=== PATIENT | female | born 1940 | race Caucasian/White ===

== ENCOUNTER → 2017-04-08 | Outpatient (CLI) | payer OTHER | LOC: BHFA 10:45 | PROVIDERS: ATTEND Internal Medicine Cardiovascular Disease | DX: I10 Essential (primary) hypertension (principal) ==

== ENCOUNTER 2018-04-15 10:20 | Inpatient (IN) | payer OTHER, MEDICARE ==
[2018-04-15 10:43] LABS: PLATELET COUNT 207 10^3/uL (150-400)
[2018-04-15] MEDS ORDERED: AZITHROMYCIN IV 500 MG in NS 250 ML IV ONE (11:07)
--- NOTE | 2018-04-15 11:11 | EDPHY ---
H & P Stated Complaint: Cough, SOB Time Seen by Provider: 04/15/18 10:38 HPI/ROS: CHIEF COMPLAINT: Shortness of breath HISTORY OF PRESENT ILLNESS: 78-year-old female presents with shortness of breath. Onset fever and chills 5 days ago. Associated with a mild cough. Shortness of breath started yesterday and has been gradually increasing. Now short of breath at rest. Has a mild sore throat, no runny nose. No chest pain or dizziness. History of pneumonia many years ago. Recent prolonged travel. No prior history of DVT/pulmonary embolism. REVIEW OF SYSTEMS: complete 10 point ROS negative except at noted in the HPI - Personal History Current Tetanus Diphtheria and Acellular Pertussis (TDAP): Yes - Medical/Surgical History Hx Asthma: No Hx Chronic Respiratory Disease: No Hx Diabetes: No Hx Cardiac Disease: No Hx Renal Disease: No Hx Cirrhosis: No Hx Alcoholism: No Hx HIV/AIDS: No Hx Splenectomy or Spleen Trauma: No Other PMH: HTN, HEARING LOSS, ANXIETY - Social History Smoking Status: Never smoked - Physical Exam Exam: General Appearance: Alert, pleasant, hard of hearing Eyes: Pupils equal and round, no conjunctival pallor or injection ENT, Mouth: Mucous membranes moist Neck: Normal inspection Respiratory: Lungs are clear to auscultation Cardiovascular: Regular rate and rhythm Gastrointestinal: Abdomen is soft and nontender Neurological: A&O, nonfocal exam Skin: Warm and dry, no rash Extremities: Nontender, no pedal edema Psychiatric: Mood and affect normal Constitutional: Initial Vital Signs Temperature (C) 36.4 C 04/15/18 10:29 Heart Rate 105 H 04/15/18 10:29 Respiratory Rate 20 04/15/18 10:29 Blood Pressure 142/78 H 04/15/18 10:29 O2 Sat (%) 80 L 04/15/18 10:29 O2 Delivery Mode Nasal Cannula O2 (L/minute) 4 Allergies/Adverse Reactions: wheat [Wheat] Allergy (Mild, Verified 10/18/12 18:39) TIRED DAIRY Allergy (Mild, Uncoded 10/18/12 18:39) INCREASE MUCUS Home Medications: Medication Instructions Recorded clonIDINE [Catapres (*)] 0.1 mg PO BID 04/15/18 Medical Decision Making - Diagnostics EKG Interpretation: EKG interpreted by me reveals sinus tachycardia, rate 108, LVH. Interpretation : Abnormal EKG Imaging Results: Chest X-Ray 04/15/18 10:36 Impression: 1. Asymmetric right hilar prominence with areas of right perihilar and lateral right upper lobe consolidation and a small right pleural effusion, indeterminate for inflammatory, infectious, or neoplastic changes. 2. Mild cardiac silhouette enlargement. Dr. Roblero has also requested CT imaging of the chest, which will be subsequently performed and separately reported. CT angiogram read by the radiologist reveals extensive bilateral pulmonary emboli. Imaging: Discussed imaging studies w/ tube and rod straightener Radiologist, I viewed and interpreted images myself ED Course/Re-evaluation: This patient presents with shortness of breath with an oxygen saturation of 80% on room air. Chest x-ray reveals a possible right sided infiltrate. However, this is a very small area of infiltrate; concern for PE. Ddimer ordered. Blood cultures were drawn and Rocephin and Zithromax given for possible pneumonia. 1235: ddimer 10.35, CTA chest ordered. 1330: CTA reveals submassive bilateral PE. Consideration for thrombolysis per radiology. Heparin per weight based protocol initiated. Will admit to ICU, Dr. Martinez. This patient was seen by the hospitalist service and decision made to not proceed with thrombolysis. IV heparin started per protocol. The patient was transferred to the ICU in stable condition. I spent a total of 35 minutes of critical care time in obtaining history, performing a physical exam, bedside monitoring of interventions, collecting and interpreting tests and discussion with consultants but not including time spent performing procedures. Organ at risk: lungs Differential Diagnosis: Differential diagnosis includes though it is not limited to pneumonia, pneumothorax, pulmonary embolism, aortic dissection, pericarditis, acute coronary syndrome. - Data Points Laboratory Results: Laboratory Results 04/15/18 10:25 04/15/18 10:35 Microbiology Results: MICROBIOLOGY 04/15/18 11:20 Blood Blood Culture - Preliminary 04/15/18 11:25 Blood Blood Culture - Preliminary Medications Given: Apixaban (Eliquis) 10 mg PO BID MARY Stop: 10/14/18 20:59 Last Admin: 04/17/18 20:23 Dose: 10 mg Clonidine (Catapres) 0.1 mg PO BID MARY Stop: 10/12/18 20:59 Last Admin: 04/17/18 20:23 Dose: 0.1 mg Hydralazine HCl (Apresoline) 10 mg IVP Q6HRS PRN PRN Reason: systolic >165, diastolic >100 Stop: 10/12/18 17:47 Last Admin: 04/17/18 04:19 Dose: 10 mg Heparin Sodium (Porcine) (Heparin 50 Units/Ml (Premix)) 500 mls @ 0 mls/hr IV CONT MARY; Per Protocol PRN Reason: Protocol Stop: 10/12/18 16:29 Last Admin: 04/17/18 08:11 Dose: 500 mls Olmesartan (Benicar) 20 mg PO DAILY MARY Stop: 10/14/18 12:59 Last Admin: 04/17/18 14:09 Dose: 20 mg Discontinued Medications Heparin Sodium (Porcine) (Heparin Injection) 0 unit IVP EDNOW ONE Stop: 04/15/18 14:13 Last Admin: 04/15/18 14:42 Dose: 7,256 units Azithromycin 500 mg/ Sodium (Chloride) 255 mls @ 255 mls/hr IV EDNOW ONE PRN Reason: Protocol Stop: 04/15/18 12:06 Last Admin: 04/15/18 12:01 Dose: 255 mls Ceftriaxone Sodium/Dextrose (Rocephin 1 Gm (Premix)) 50 mls @ 100 mls/hr IV EDNOW ONE PRN Reason: Protocol Stop: 04/15/18 11:36 Last Admin: 04/15/18 11:31 Dose: 50 mls Heparin Sodium (Porcine) (Heparin 50 Units/Ml (Premix)) 500 mls @ 0 mls/hr IV EDNOW ONE; Per Protocol PRN Reason: Protocol Stop: 04/15/18 14:13 Last Admin: 04/15/18 14:44 Dose: 500 mls Lorazepam (Ativan) 0.5 mg PO ONCE ONE Stop: 04/15/18 14:28 Last Admin: 04/15/18 14:43 Dose: 0.5 mg Departure - Departure Disposition: [facility] Acute Clinical Impression: Pulmonary embolism Qualifiers: Pulmonary embolism type: other Chronicity: acute Acute cor pulmonale presence: with acute cor pulmonale Qualified Code(s): I26.09 - Other pulmonary embolism with acute cor pulmonale Condition: Serious
[2018-04-15] MEDS ORDERED: IOPAMIDOL (ISOVUE 370) 100 ML BTL IV ONE (12:33)
--- NOTE | 2018-04-15 13:11 | PDGENHP ---
History and Physical History and Physical: CC: Shortness of breath HISTORY: This patient comes into the ER today complaining of several days of increasing shortness of breath with slight cough. She mentions having some fever and chills symptoms but did not measure temperature at her temperatures are normal so far here. There has been stuffiness in her nose, but no other real definite infectious type symptoms. She denies any kind of chest pain pleuritic or otherwise. And she also denies any pain or swelling in her legs. She has nothing that sounds like angina and no orthopnea. She does not have a history of asthma or lung disease or heart disease or clots. She has driven to [place] and back twice in the month of March. She is not a smoker. She has no history of cancer and does not describe to me any symptoms that sound like she would have a cancer. ROS: A comprehensive 10 system review revealed no other significant findings PAST MEDICAL HISTORY: Essential hypertension * Note that her blood pressure is chronically been quite difficult to control, she was fairly recently started on twice daily clonidine has been on a large number of medicines prior to that that were either not tolerated or ineffective Hard of hearing Anxiety disorder FAMILY MEDICAL HISTORY: Hypertension Anxiety SOCIAL HISTORY: Lives alone Reasonably physically active No alcohol tobacco or drugs MEDICATIONS: Clonidine 0.1 twice daily Denies medicine allergies PHYSICAL EXAMINATION: Vital Signs: She is initially moderately tachycardic with a regular rhythm in the ER, her lowest oxygen saturation in the ER on room air is 80%, blood pressures mildly to moderately elevated, no fever Regional Facilities Manager: Examination: General: alert, oriented, good mentation, relaxed, talkative; wearing nasal cannula oxygen at 3 L Skin: warm, dry, good color, no rash; fingers and toes are all warm with good color and good capillary refill she has a very good pulse wave on pulse oximeter from her finger HEENT: normal Neck: no mass or jvd Resps: relaxed Lungs: clear breath sounds Heart: regular, no murmur Abdomen: soft, nondistended, nontender, +BS, no mass Upper Extremities: normal Lower Extremities: no edema, warm No Bleeding or bruising Neurologic: normal speech/language, normal product design manager, no focal weakness IV site: looks normal LABORATORY DATA: D-dimer elevated at 10 White blood cell count is normal as are red cell and platelet counts Sodium low at 125 Pro BNP elevated at 6000 Glucose at 176 Lactic acid normal RADIOLOGY STUDIES: I reviewed to images from a chest x-ray in the ER today, there is a very small pleural effusion on the right, there is some densities in the right lung that could be infiltrate mass or otherwise; there is no pulmonary edema or evidence of CHF otherwise; there are no old chest x-rays for comparison I also ordered and reviewed images from a CT angio of her chest today. There is complete obstruction of the left main pulmonary artery distally with thrombus that extends out distally beyond that. There is also significant burden of clot in vessels on the left side of the left main is open. No clot in the main pulmonary artery was saddle. There is evidence of some possible right heart strain and there is evidence suggesting pulmonary hypertension. There is some areas of consolidation in the right lung that are suggestive of infarct versus other cause. No masses are seen, there is a small effusion 12 LEAD EKG: I reviewed 12 lead tracing from the ER which shows a sinus rhythm, tachycardic, with left anterior fascicular block, possible LVH based on precordial leads, no ischemic ST or T-wave changes and no Q-waves; the conduction changes are new since 2012 and the chest lead voltages are higher than they were in 2012 though the limb lead voltages today are some small ASSESSMENT: * acute submassive pulmonary embolism with stable blood pressure and pulse, breathing comfortably on 3 L nasal cannula oxygen * Appears possibly unprovoked though she did drive to [place] her twice in March which could have triggered this * No prior history, no other known risk factors and no family history * acute hypoxemic respiratory failure with dyspnea hypoxemia labored breathing and tachycardia * Appears all due to her PE and its consequences; I do not think she has pneumonia which is the ER diagnosis initially * hyponatremia * Cause of this is uncertain but she likely has some SIADH * Will check some urine studies * hyperglycemia, question if she is developing diabetes which would be new for her * elevated BNP; due to PE, does not appear to have any left-sided heart failure PLANS: * Inpatient admission * Admission to Step-Down Unit * IV heparin drip * I have consulted Dr. Angel Isaac to see her and have discussed her case in detail with him * Ultrasound of the legs 5 to assess for clot * Check hemoglobin A1c * Oral fluid restriction, follow sodiums closely * Check urine sodium This patient has fairly high risk for significant complications of her PE has a high Pesi score I have reviewed the patient's case in detail with Dr. Sha Connelly and Angel Isaac I have reviewed the patient's past medical records as part of this assessment, including previous hospital admission records including lab data EKGs vital signs physician notes etc
[2018-04-15] MEDS ORDERED: HEPARIN 10,000 UNIT/10 ML MDV (1,000 UNIT/ML) IVP ONE (14:12)
[2018-04-15] MEDS ORDERED: HEPARIN/DEXTROSE 500 ML IV ONE (14:12)
[2018-04-15] MEDS ORDERED: LORazepam 0.5 MG TAB PO ONE (14:27)
--- NOTE | 2018-04-15 14:55 | CPEKG ---
Test Reason : OPEN Blood Pressure : / mmHG Vent. Rate : 108 BPM Atrial Rate : 108 BPM P-R Int : 196 ms QRS Dur : 097 ms QT Int : 357 ms P-R-T Axes : 064 -58 029 degrees QTc Int : 479 ms Sinus tachycardia Atrial premature complex LAE, consider biatrial enlargement Left anterior fascicular block Left ventricular hypertrophy Anterior Q waves, possibly due to LVH Confirmed by Vi Roblero ([id number]) on 04/15/2018 2:54:56 PM Referred By: Confirmed By:iV Roblero
--- NOTE | 2018-04-15 15:21 | PDMN ---
Medical Necessity Medical necessity: MCG M290 PE: 78 y/o w/ acute hypoxemic respiratory failure ( 80% on RA) with dyspnea, hypoxemia, labored breathing and tachycardia, hyponatremia (125), hyperglycemia 176 (new - no hx diabetes), elevated BNP 6000 and Ddimer 10.95, CTA shows acute PE w/ large clot burden causing right heart strain. Inpt admit for further treatment and monitoring.
--- NOTE | 2018-04-15 15:45 | ASMTCMCOM ---
CM Note CM Note Notes: Chart reviewed for discharge planning purposes. Patient is a 78 year old female admitted via ED after having several days of increasing SOB. Per CT is has diagnosis of bilateral PE's. She normally lives alone and has 2 daughters listed in her demographics. Needs TBD. CM to follow for needs. Plan: TBD Date Signed: 04/15/2018 03:44 PM Electronically Signed By:Paula Luis RN
[2018-04-15] MEDS ORDERED: HEPARIN 10,000 UNIT/10 ML MDV (1,000 UNIT/ML) IVP PRN (16:25)
[2018-04-15 17:34] LABS: PLATELET COUNT 200 10^3/uL (150-400)
--- NOTE | 2018-04-15 18:22 | GCON ---
PULMONARY CONSULTATION HPI: This patient was brought to the emergency department today complaining of several days of short ness of breath with some fever and chills, as well as nasal stuffiness. She also reported generalize d malaise over the last week or so. She has not had any recent trauma. There have been no recent hughes rgeries. She has no history of venous thromboembolic disease in herself or her family. No known mal ignancies and is a nonsmoker. In the emergency department, her workup included a CT angiogram that r evealed a large clot burden with pulmonary embolism. There was some consideration for thrombolytic t herapy, but this was not done. She was treated with a heparin drip and transferred to the intensive care unit for further evaluation. REVIEW OF SYSTEMS: Otherwise negative. PAST MEDICAL HISTORY: Includes poorly-controlled hypertension, hard of hearing, and an anxiety disor noman. PAST SURGICAL HISTORY: Includes only cochlear implants. FAMILY HISTORY: Includes hypertension, anxiety. SOCIAL HISTORY: She is a nonsmoker. No alcohol or IV drug use in the past. CURRENT MEDICATIONS: Include clonidine, as she has been noncompliant with as an outpatient, and a he grzegorz drip, as well as p.r.n. hydralazine. PHYSICAL EXAM: VITAL SIGNS: She was afebrile. Her blood pressure was 180/105, heart rate 96, respi rations 27, oxygen saturation 92% on 3 L nasal cannula. GENERAL: She was awake and alert, in no aicha arent distress, and able to speak in full sentences without using accessory muscles for breathing. H EENT: Pupils are equally round and reactive to light, nonicteric, and noninjected. Mucous membranes are moist without erythema or exudate. NECK: Supple without adenopathy, and no obvious jugular vei n distention. LUNGS: Breath sounds were distant bilaterally but were clear to auscultation. HEART: Sounds were also distant but I could not appreciate any murmurs or rubs. ABDOMEN: Soft, nontender , nondistended without hepatosplenomegaly. EXTREMITIES: Showed no clubbing, cyanosis, or edema. NE UROLOGIC: Nonfocal, including cranial nerves and deep tendon reflexes. SKIN: Warm and dry, without evidence of rash, and she was morbidly obese. LABORATORY DATA: Includes a white count of 8.9, hematocrit 44, platelets of 207. D-dimer of 10.9. Sodium was 125, potassium 4.3, chloride 86, bicarb 26, BUN 16, creatinine 0.9, glucose 176. BNP 6180 . IMAGING: CT angiogram shows acute pulmonary embolism with evidence of right heart strain, right uppe r lobe wedge-shaped consolidative opacities consistent with infarcts, and cholelithiasis. ASSESSMENT AND PLAN: Acute pulmonary embolism: As far as I can tell, this is unprovoked at this mary e. I do not see anything highly suspicious on her CT scan suggestive of malignancy nor does she have any symptoms that would suggest this, and she is a nonsmoker. She reports being quite active. She goes to [employer] twice a week, yoga 3 times a week, and walks frequently. Her neighbor was with us at the time of the evaluation and substantiated that story. In any case, I agree with the heparin drip , and she will eventually need to transition to an oral anticoagulant. If she remains stable overnig ht, I would also change her to a low-molecular weight heparin for the acute period. I think that thr ombolytic therapy was not clearly indicated in the absence of hypotension while RV strain can be an i ndication for thrombolytic therapy, her poorly-controlled hypertension may this a difficult choice, a nd could have ended in substantial bleeding. In any case, she will eventually need a repeat CT scan to make sure that the consolidative processes noted do, in fact, resolve, and I think that a hypercoa gulable workup at this time would probably be useful for what we can measure such as factor V Leiden, lupus anticoagulant, and prothrombin [id number]. In any case, she appears to be hemodynamically stable at this time and we will continue to follow. /[id number]/MODL
[2018-04-15] MEDS: hydrALAZINE 20 MG/ML VIAL IVP PRN (18:35)
[2018-04-16] MEDS: HEPARIN/DEXTROSE 500 ML IV SCH (09:56)
--- NOTE | 2018-04-16 11:04 | PDINTPN ---
Linker Up Progress Note Assessment/Plan: 78 F admitted 04/15 with complaints of generalized fatigue and cough, found to have large PE. No obvious risk factors. Lytics were considered 2/2 right heart strain noted on CTA but she had poorly controlled HTN. Treated with UFH. * PE- unprovoked as far as I can tell. Popliteal DVT seen on US was probably source, but no IVC filter indicated at this time. She can probably transition to LMWH and oral anticoagulants. I would favor treatment for 6 months (3-6 mo per ACCP guidelines). Some hypercoag parameters sent and pending. She has never had a colonoscopy and does not have a primary care physician. I urged her to identify one, gave her a few names and asked CM to assist. OK for PCU Subjective: feels better today Objective: Vital Signs Temp Pulse Resp BP Pulse Ox 36.6 C 83 30 H 145/92 H 95 04/16/18 08:00 04/16/18 08:00 04/16/18 08:00 04/16/18 08:00 04/16/18 08:00 Laboratory Results 04/15/18 17:17 04/16/18 04:00 04/15/18 04/16/18 04/17/18 05:59 05:59 05:59 Intake Total 1417 Output Total 650 Balance 767 Physical Exam - Physical Exam General Appearance: WD/WN, alert, no apparent distress, obese EENT: PERRL/EOMI Neck: supple Respiratory: lungs clear, normal breath sounds, No respiratory distress, No accessory muscle use Cardiac/Chest: regular rate, rhythm, No edema Abdomen: non-tender, soft, No distended Skin: normal color, warm/dry, No cyanosis Lymphatic: no adenopathy Extremities: No pedal edema Neuro/Psych: alert, normal mood/affect, oriented x 3 ICD10 Worksheet Patient Problems: Problems Problem Status Onset Pulmonary embolism Acute Hypertension, uncontrolled Acute
--- NOTE | 2018-04-16 11:48 | ASMTCMCOM ---
CM Note CM Note Notes: Per MD request met with patient to provide her with options for [place] female medical practitioners for her to choose a PCP. Patient was agreeable to discussing options. let her with name and numbers for female providers. CM to follow for needs. Plan: TBD Date Signed: 04/16/2018 11:47 AM Electronically Signed By:Paula Luis RN
--- NOTE | 2018-04-16 12:19 | HOSPPROG ---
Hospitalist Progress Note Assessment/Plan: DIAGNOSES: * acute submassive pulmonary embolism with stable blood pressure and pulse, breathing comfortably on 3 L nasal cannula oxygen; DVT present * Appears possibly unprovoked though she did drive to [place] her twice in March which could have triggered this * No prior history, no other known risk factors and no family history * acute hypoxemic respiratory failure with dyspnea hypoxemia labored breathing and tachycardia * Appears all due to her PE and its consequences; I do not think she has pneumonia which was the ER diagnosis initially * severe HTN, uncontrolled, w hx chronic poorly controlled HTN * hyponatremia * Cause of this is uncertain but she likely has some SIADH * Will check some urine studies * hyperglycemia, question if she is developing diabetes which would be new for her * elevated BNP; due to PE, does not appear to have any left-sided heart failure or edema PLANS: * continue iv heparin, continue discussion for eventual change to oral * transfer pcu * continue glass technician/installer * continue to follow HTN closely, titrate treatment as needed * will add some sodium supplement, for now continue fluid restriction, continue to follow serum sodium closely * await Hg A1c; sugars do not need specific tx at present I reviewed in detail w Dr Isaac today Fairly high risk of complications, concerned for her HTN on anticoag SUBJECTIVE: feels overall comfortable, still w dyspnea no pain no new sxs no bleeding OBJECTIVE: vitals: BPs better, remains tachypneic, pulse good, breathing easily on 2L NC heart monitor: all sinus Exam: alert, more relaxed tachypneic and mild labor but speaks easily lungs clear heart regular abd nl no edema legs no bleed or bruise Lab data: Hep level 1.0 Na up to 127 gluc 120 Objective: Vital Signs Temp Pulse Resp BP Pulse Ox 36.8 C 85 22 H 144/93 H 97 04/16/18 11:58 04/16/18 11:58 04/16/18 11:58 04/16/18 11:58 04/16/18 11:58 Laboratory Results 04/15/18 17:17 04/16/18 04:00 04/15/18 04/16/18 04/17/18 06:59 06:59 06:59 Intake Total 1417 Output Total 650 Balance 767 - Time Spent With Patient Time Spent with Patient: greater than 35 minutes Time Spent with Patient: Greater than 35 minutes spent on this patients care, greater than 50% of time spent counseling, educating, and coordinating care regarding the above mentioned plan. ICD10 Worksheet Patient Problems: Problems Problem Status Onset Pulmonary embolism Acute Hypertension, uncontrolled Acute
[2018-04-16] MEDS: hydrALAZINE 20 MG/ML VIAL IVP PRN (16:39)
[2018-04-17] MEDS: hydrALAZINE 20 MG/ML VIAL IVP PRN (04:19)
[2018-04-17] MEDS: HEPARIN/DEXTROSE 500 ML IV SCH (08:11)
[2018-04-17] MEDS: OLMESARTAN MEDOXOMIL 20 MG TAB PO SCH (14:09)
--- NOTE | 2018-04-17 16:40 | HOSPPROG ---
Hospitalist Progress Note Assessment/Plan: Subjective Follow-up on pulmonary embolism. No complaints of shortness of breath or pleuritic-type chest pains at this time. We had a long discussion on oral anticoagulation agents and after discussing the benefits of the risks in using Coumadin and newer anticoagulants such as Xarelto or Eliquis or Pradaxa we opted to start on Eliquis. We also discussed her hypertension and sounds like she has had multiple attempts with oral medications for blood pressure control. She was agreeable to try a angiotensin receptor rafi once again but it sounds like she did tolerate losartan in the past. The intolerance was uncertain to me. Objective Vital signs as detailed below Exam General-patient appeared comfortable sitting in chair at the bedside awake alert conversant no acute distress Heart-regular no murmurs appreciated Lungs-Clear to auscultation with normal respiratory effort Abdomen-soft nontender nondistended -no Hinds catheter in place Extremities-no significant pitting edema Labs as detailed below Assessment and plan Deep vein thrombosis with pulmonary embolism in right heart strain-fortunately the patient has remained stable and done well with heparin. Considering the continued clinical stability I think we can transition her to oral anticoagulants at this point time. We will start Eliquis this evening and transition off the heparin drip. Will start Eliquis at 10 mg twice a day for the next 7 days and then plan on reducing the dose to 5 mg twice a day thereafter. She did have several long road trips so we could consider this a provoking factor. She does however have a pending hypercoagulable workup. I recommended a minimum of 6 months of anticoagulation. Acute hypoxic respiratory failure-secondary to her pulmonary embolism. Wean oxygen as able. 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 Recheck again tomorrow morning. Hypertension-uncontrolled. Continue with current clonidine 0.1 mg twice a day. Will add Benicar 20 mg daily today. The disposition-potentially home in the next 1-2 days depending on clinical stability. Objective: Vital Signs Temp Pulse Resp BP Pulse Ox 36.6 C 94 16 141/90 H 91 L 04/17/18 15:43 04/17/18 15:43 04/17/18 15:43 04/17/18 15:43 04/17/18 15:43 Laboratory Results 04/17/18 03:23 04/16/18 04:00 04/16/18 04/17/1804/18/18 05:59 05:59 05:59 Intake Total 1417 1189 Output Total 650 602 Balance 767 587 ICD10 Worksheet Patient Problems: Problems Problem Status Onset Pulmonary embolism Acute Hypertension, uncontrolled Acute
[2018-04-17] MEDS: APIXABAN 5 MG TAB PO SCH (20:23)
[2018-04-18] MEDS: OLMESARTAN MEDOXOMIL 20 MG TAB PO SCH (06:03)
[2018-04-18 06:26] LABS: PLATELET COUNT 269 10^3/uL (150-400)
[2018-04-18] MEDS: APIXABAN 5 MG TAB PO SCH ×2 (08:13→20:15)
[2018-04-18] MEDS ORDERED: LORazepam 0.5 MG TAB PO PRN (09:09)
[2018-04-18] MEDS: HYDROCHLOROTHIAZIDE 25 MG TAB PO SCH (10:06)
--- NOTE | 2018-04-18 14:36 | HOSPPROG ---
Hospitalist Progress Note Assessment/Plan: Subjective Follow-up on pulmonary embolism. Patient had a mild bleeding from her nose this morning. She was able to stop it with pressure. We did take off her nasal cannula oxygen at that time and she was satting within normal limits for a brief time but then did desaturate below 90% and according to nursing to put her back on oxygen her sats returned into the 90s. Otherwise no acute events overnight and no instability to her vital signs. Objective Vital signs as detailed below Exam General-patient appeared comfortable sitting in chair at the bedside awake alert conversant no acute distress Heart-regular no murmurs appreciated Lungs-Clear to auscultation with normal respiratory effort Abdomen-soft nontender nondistended -no Hinds catheter in place Extremities-no significant pitting edema Labs as detailed below Assessment and plan Deep vein thrombosis with pulmonary embolism in right heart strain-fortunately the patient has remained stable and done well with heparin. She seems to be tolerating Eliquis without difficulty. She did have several long road trips so we could consider this a provoking factor. She does however have a pending hypercoagulable workup. I recommended a minimum of 6 months of anticoagulation. Epistaxis-mild. Relatively easy control with pressure. Monitor closely for any recurrence and work on blood pressure control. Acute hypoxic respiratory failure-secondary to her pulmonary embolism. Wean oxygen as able. She may need supplemental oxygen leaving the hospital if unable to wean to room air. 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 Recheck again tomorrow morning. Hypertension-uncontrolled. Continue with current clonidine 0.1 mg twice a day. Benicar 20 mg daily was added yesterday without really much success. I recommend adding hydrochlorothiazide today however we will need to be careful and monitor her sodium level. It sounds like she has had multiple medication intolerance is in the past with blood pressure medications. The disposition-potentially home in the next 1-2 days depending on clinical stability. Objective: Vital Signs Temp Pulse Resp BP Pulse Ox 36.4 C 80 18 156/88 H 94 04/18/18 11:30 04/18/18 11:30 04/18/18 11:30 04/18/18 14:07 04/18/18 11:30 Laboratory Results 04/18/18 06:10 04/18/18 06:10 04/17/18 04/18/18 04/19/18 05:59 05:59 05:59 Intake Total 1189 950 Output Total 602 Balance 588 950 ICD10 Worksheet Patient Problems: Problems Problem Status Onset Pulmonary embolism Acute Hypertension, uncontrolled Acute
[2018-04-18] MEDS: hydrALAZINE 20 MG/ML VIAL IVP PRN (16:23)
[2018-04-18] MEDS ORDERED: OLMESARTAN MEDOXOMIL 20 MG TAB PO ONE (19:15)
[2018-04-19] MEDS: hydrALAZINE 20 MG/ML VIAL IVP PRN (04:23)
[2018-04-19 04:51] LABS: PLATELET COUNT 272 10^3/uL (150-400)
[2018-04-19] MEDS: HYDROCHLOROTHIAZIDE 25 MG TAB PO SCH (08:50)
[2018-04-19] MEDS: APIXABAN 5 MG TAB PO SCH ×2 (08:50→21:17)
[2018-04-19] MEDS: OLMESARTAN MEDOXOMIL 20 MG TAB PO SCH (08:50)
[2018-04-19] MEDS ORDERED: SODIUM CL NASAL GEL 14.1 GM TUBE TP PRN (11:39)
[2018-04-19] MEDS ORDERED: OLMESARTAN MEDOXOMIL 20 MG TAB PO ONE (11:53)
[2018-04-19] MEDS ORDERED: OLMESARTAN MEDOXOMIL 20 MG TAB PO SCH (11:53)
--- NOTE | 2018-04-19 14:14 | ASMTCMCOM ---
CM Note CM Note Notes: 04/19/2018 Eben Management Note Discussed pt during rounds this morning. Met w/pt. Pt chose Dr. Bridger Hardin for her PCP. Notified admissions. Pt refused home care d/t home bound status. Pt refused Meals on Wheels. Pt able to drive and reports no difficulties preparing meals. Pt has field contractor every 2 weeks and her daughter visits regularly. Pt communications advisor is [facility] in [place] [phone]. Case Management d/c poc: anticipating independent with follow up as directed. Case Management to follow. Date Signed: 04/19/2018 02:13 PM Electronically Signed By:Gabby Meraz RN
--- NOTE | 2018-04-19 18:54 | ECHO ---
[email or web address] [address] [address] Main: [phone] Fax: Transthoracic Echocardiogram Name: DARRELL LEE MR#: [id number] Study Date: 04/19/2018 Study Time: 12:18 PM Date of : 1940 Age: 78 year(s) Height: 167.6 cm (66 in.) Weight: 81.65 kg (180 lb.) BSA: 1.91 m2 Gender: Female Examination: Echo Indication: RV Strain Image Quality: Adequate Contrast: Requested by: Renetta Jaffe BP: 153 mmHg/85 mmHg Heart Rate: Rhythm: Indication: RV Strain Procedure Staff Rehab Director Occupational Therapist: Mansi Duran RDCS Reading Physician: Benny Trejo MD Requesting Provider: Conclusions: Normal size left ventricle. Global hypercontractility of the left ventricle. EF is 70 %. No regional wall motion abnormality. Grade 1 diastolic dysfunction (abnormal relaxation). Mildly dilated right ventricle. Mild mitral valve regurgitation is present. Mild tricuspid regurgitation is present. The pulmonary artery pressure is moderately increased. Right ventricular systolic pressure measures 50mmHg. Small pericardial effusion. Measurements: Chambers Valvular Assessment AV/MV Valvular Assessment TV/PV Normal Normal Normal Name Value Range Name Value Range Name Value Range Ao Mayi (2D): 2.5 cm (1.4 cm-2.6 AV Vmax: 1.76 m/s (1 m/s-1.7 TR Vmax: 3.34 mm/s ( - ) cm) m/s) TR PGmax: 45 mmHg ( - ) IVSd (2D): 1.6 cm (0.6 cm-1.1 AV maxP mmHg ( - ) syst. PAP: 50 mmHg ( - ) cm) AV meanP mmHg ( - ) PV Vmax: 0.87 m/s (0.6 m/s-0.9 LVDd (2D): 3.1 cm (3.9 cm-5.3 BLADIMIR (VTI): 1.6 cm ( - ) m/s) cm) MV E Vmax: 0.66 m/s ( - ) PV PGmax: 3 mmHg ( - ) LVDs (2D): 1.9 cm (2.1 cm-4 MV A Vmax: 1.16 m/s ( - ) cm) MV E/A: 0.57 ( - ) LVPWd (2D): 1.5 cm ( - ) MV PHT: 0.047 s ( - ) LVOTd 1.7 cm 1.7 cm mm MVA (PHT): 4.7 s ( - ) LVEF (BP): 70 % (>=55 %) RVDd(2D): 4.0 cm (1.9 cm-3.8 cmmm) Patient: DARRELL LEE Study Date: 04/19/2018 Page 1 of 2 12:18 PM Continued Measurements: Chambers Valvular Assessment AV/MV Valvular Assessment TV/PV Name Value Name Value Name Value LADs: 3.2 cm MV DecTime: 137 m/s CVP (est.): 5 mmHg LADs Lon.6 cm LA Area: 15.1 cm2 LA Volume: 37 ml LA Volume Index: 19.4 ml/m2 RA Area: 18.5 cm2 Additional Vessels Name Value Ao Ascendin.3 cm Inferior Vena Cava: 1.2 cm Findings: Left Ventricle: Normal size left ventricle. Global hypercontractility of the left ventricle. EF is 70 %. No regional wall motion abnormality. Grade 1 diastolic dysfunction (abnormal relaxation). Left ventricular hypertrophy. There appears to be a mild increase in velocities across LVOT. Right Ventricle: Mildly dilated right ventricle. Normal RV function. Left Atrium: The left atrium is normal in size. Right Atrium: The right atrium is normal in size. Mitral Valve: The mitral valve is normal in appearance and function. Mild mitral valve regurgitation is present. No mitral stenosis is present. Aortic Valve: The aortic valve is tri-leaflet. There is no significant aortic valve regurgitation. No aortic valve stenosis is present. Tricuspid Valve: The tricuspid valve is normal in appearance and function. Mild tricuspid regurgitation is present. The pulmonary artery pressure is moderately increased. Right ventricular systolic pressure measures 50mmHg. Pulmonic Valve: The pulmonic valve is normal in appearance and function. There is no pulmonic regurgitation seen. Aorta: The aorta is normal. Normal size aortic root measuring 2.5 cm. Normal size ascending aorta measuring 3.3 cm. IVC: The IVC is normal sized. Pericardium: Small pericardial effusion. No pleural effusion. (No Signature Object) Patient: DARRELL LEE Study Date: 04/19/2018 Page 2 of 2 12:18 PM [id number]
--- NOTE | 2018-04-19 20:05 | HOSPPROG ---
Hospitalist Progress Note Assessment/Plan: * Large PE with RV strain -still tachycardic and hypoxic - continue as inpatient -continue Eliquis * HTN - uncontrolled -poor outpatient compliance, multiple drug intolerances -increased Benicar and clonidine * Acute respiratory failure as evidenced by 80%RA on admission + RR 25 -wean O2 * Hyponatremia - improved -Urine sodium 7 suggests hypovolemia, suspect hemodynamic poor renal perfusion due to PE -hold HCTZ for now, consider as outpatient if Na stabilizes Subjective: NO new complaints. Objective: Vital Signs Temp Pulse Resp BP Pulse Ox 36.5 C 92 19 174/102 H 95 04/19/18 19:49 04/19/18 19:49 04/19/18 19:49 04/19/18 19:49 04/19/18 19:49 Laboratory Results 04/19/18 04:00 04/19/18 04:00 04/18/18 04/19/18 04/20/18 05:59 05:59 05:59 Intake Total 193 339 4162 Balance 158 563 0572 tele reviewed - NSR to sinus tachy CTA chest - large PE with RV strain CXR viewed, my personal interpretation is - right pleural effusion - Physical Exam Constitutional: no apparent distress, appears nourished, not in pain Ears, Nose, Mouth, Throat: hard of hearing Cardiovascular: regular rate and rhythym, no murmur, rub, or gallop Respiratory: no respiratory distress, no rales or rhonchi, clear to auscultation Gastrointestinal: normoactive bowel sounds, soft, non-tender abdomen, no palpable masses Skin: no rashes or abrasions, no fluctuance, no induration Neurologic: AAOx3, sensation intact bilaterally Psychiatric: interacting appropriately, not anxious, not encephalopathic, thought process linear ICD10 Worksheet Patient Problems: Problems Problem Status Onset Pulmonary embolism Acute Hypertension, uncontrolled Acute
[2018-04-20 08:41] VITALS: BP 170/97
[2018-04-20] MEDS: APIXABAN 5 MG TAB PO SCH (09:00)
--- NOTE | 2018-04-20 10:36 | ASDISCHSUM ---
Discharge Information Plan Status:Home with No Needs Medically Cleared to Leave:04/20/2018 Discharge Date:04/20/2018 CM D/C Disposition:Home, Routine, Self-Care ADT D/C Disposition:Home, Routine, Self-Care Projected Discharge Date:04/20/2018 Transportation at D/C:Family Discharge Delay Reason: Follow-Up Date:04/20/2018 Discharge Slot: Final Diagnosis: Placement Information Patient Contact Information Contact Name:JJ Relationship:Daughter Address: Work Phone: City:[place] [facility] Phone: State/[place] Email: Financial Information Financial Class:Medicare Primary Plan Desc:MEDICARE INPATIENT Primary Plan Number:[id number] Secondary Plan Desc:[employer]/MDR SUPPLEMENT Secondary Plan Number:[id number] Assessment Information LACE LACE Length of stay for Answers: 4-6 days current admission Acuity / Level of Answers: Yes Care: Did the patient have an inpatient admission? Comorbidities - select Answers: Other Notes: HTN all that apply # of Emergency department Answers: 1-2 visits in the last 6 months Social determinants Answers: Mental health diagnosis (anxiety, depression, pers onality disorders, etc.) Score: 12 Date Signed: 04/20/2018 10:33 AM Electronically Signed By:Gabby Meraz RN [facility] CM Progress Note CM Note CM Note Notes: Chart reviewed for discharge planning purposes. Patient is a 78 year old female admitted via ED after having several days of increasing SOB. Per CT is has diagnosis of bilateral PE's. She normally lives alone and has 2 daughters listed in her demographics. Needs TBD. CM to follow for needs. Plan: TBD Date Signed: 04/15/2018 03:44 PM Electronically Signed By:Paula Luis RN [facility] Progress Note CM Note CM Note Notes: Per MD request met with patient to provide her with options for [place] female medical practitioners for her to choose a PCP. Patient was agreeable to discussing options. let her with name and numbers for female providers. CM to follow for needs. Plan: TBD Date Signed: 04/16/2018 11:47 AM Electronically Signed By:Paula Luis RN [facility] CM Progress Note CM Note CM Note Notes: 04/19/2018 Eben Management Note Discussed pt during rounds this morning. Met w/pt. Pt chose Dr. Bridger Hardin for her PCP. Notified admissions. Pt refused home care d/t home bound status. Pt refused Meals on Wheels. Pt able to drive and reports no difficulties preparing meals. Pt has lamination operator every 2 weeks and her daughter visits regularly. Pt hot stamp operator is [facility] in [place] [phone]. Case Management d/c poc: anticipating independent with follow up as directed. Case Management to follow. Date Signed: 04/19/2018 02:13 PM Electronically Signed By:Gabby Meraz RN Intervention Information Intervention Type:*Incorrect Registration Date of Service:04/15/2018 03:12 PM Patient Type:Observation Staff Member:Tita Renteria Hours: Discipline: Severity: Comment: Intervention Type:*IM-Signed Date of Service:04/20/2018 10:18 AM Patient Type:Inpatient Staff Member:Maryjane Padron Hours: Discipline: Severity: Comment:
--- NOTE | 2018-04-20 19:11 | GDS ---
DISCHARGE DIAGNOSES: 1. Acute pulmonary embolus with right ventricular strain. 2. Popliteal deep vein thrombosis. 3. Uncontrolled hypertension. 4. Acute respiratory failure. 5. Hyponatremia. 6. Incidentally noted liver lesion. HISTORY: The patient is a 78-year-old female who presented with respiratory failure and was found to have a large pulmonary embolus on CAT scan with evidence of RV strain. She was tachycardic and hypo xic and was continued as an inpatient for a full 5 days to ensure stability prior to discharge home. She has now been transitioned to Eliquis. Hypoxia and tachycardia are resolved. Echocardiogram don e before discharge shows minimal pulmonary hypertension, but definitely no severe RV strain at this t fabián. She has weaned down to room air. During this hospitalization, she was also found to have very uncontrolled hypertension. She has poor outpatient compliance. She does not have a primary care doctor and reports a history of multiple dr ug intolerances. She came in on a low-dose clonidine. She is intolerant of RYAN inhibitors but is to lerating Benicar. She refuses calcium channel blockers or beta blockers. I was hesitant to prescrib e hydrochlorothiazide due to her hyponatremia on presentation. In addition to adding Benicar, I incr eased her clonidine to 0.2 mg p.o. b.i.d. Hydrochlorothiazide could be considered as an outpatient i f her sodium normalizes when she is no longer decompensated from her submassive pulmonary embolus. S he plans to follow up with Dr. Bridger Hardin post discharge. DISCHARGE MEDICATIONS: Please see computerized record for full detailed list. New medications: 1. Eliquis 10 mg p.o. b.i.d. to complete 7 days of therapy and then decrease to 5 mg p.o. b.i.d. 2. Clonidine 0.2 mg p.o. b.i.d. 3. Benicar 40 mg p.o. daily. ADDITIONAL DISCHARGE INSTRUCTIONS: 1. Liver lesion incidentally noted on echocardiogram. Recommend followup ultrasound of the liver as an outpatient. 2. Follow up with Dr. Bridger Hardin to establish primary care. 3. Greater than 30 minutes' time was spent arranging this discharge. Patient seen and examined by me on the day of discharge. /[id number]/MODL
== END 2018-04-20 12:07 | disposition home or self-care (01) | DRG 175 ==
LOC: EDUNIT# → OBSVTOIN 14:48 → F2N 14:57 → F2W 04-16 18:15
PROVIDERS: ADMIT Internal Medicine; ATTEND Internal Medicine
DX: I26.99 Other pulmonary embolism without acute cor pulmonale (principal); J96.01 Acute respiratory failure with hypoxia; I82.4Z2 Acute embolism and thrombosis of unspecified deep veins of left distal lower extremity; I50.1 Left ventricular failure, unspecified; E87.1 Hypo-osmolality and hyponatremia; K76.9 Liver disease, unspecified; I10 Essential (primary) hypertension; F41.9 Anxiety disorder, unspecified; Z96.21 Cochlear implant status
CPT/HCPCS: 85210-90; 85520-90; 85635-90; 85670-90; 86147-90; 96365; 97161-GP; 97165-GO; 97530-GO; 97535-GO; G8978-GP-CI; G8979-GP-CH; G8987-GO-CI; G8987-GO-CJ; G8988-GO-CI; G8989-GO-CI; J0360; J0456; J0696; J1644; Q9967